=== PATIENT | female | born 1970 | race African-American/Black ===

== ENCOUNTER 2018-04-12 07:48 | Day surgery (SDC) | payer OTHER ==
[2018-04-06 14:10] VITALS: BMI 33.1
--- NOTE | 2018-04-12 07:17 | HP ---
History & Physical Update - History History: No Change - Physical Physical: No Change - Assessment Assessment: No Change - Plan Plan: No Change (H&P completed on 04/02/[address] Addison Griffin. No new medications or complaints. C/o LBP radiating to right hip-->leg. Here today for elective L4/5 laminectomy.)
[2018-04-12] MEDS ORDERED: oxyCODONE HCL 10 MG SUSTAINED ACTING TABLET PO STA (08:00)
[2018-04-12] MEDS ORDERED: methylPREDNISolone ACET (DEPO) 40 MG/1 ML VIAL ONE (10:32)
[2018-04-12] MEDS ORDERED: LIDOCAINE 1%/EPI 1:100000 (20 ML MULTI DOSE VIAL) ONE (10:32)
[2018-04-12] MEDS ORDERED: BUPIVACAINE HCL/PF 2.5 MG/ML - 30 ML VIAL IJ ONE (10:32)
[2018-04-12] MEDS ORDERED: THROMBIN (RECOMBINANT) 5,000 UNIT VIAL TP ONE (10:32)
[2018-04-12] MEDS ORDERED: BUPIVACAINE HCL/PF (5 MG/ML) 30 ML VIAL IJ ONE (10:57)
[2018-04-12] MEDS ORDERED: MIDAZOLAM HCL 2 MG/2 ML SINGLE DOSE VIAL ONE ×2 (10:57→11:41)
[2018-04-12] MEDS ORDERED: DEXMEDETOMIDINE HCL 200 MCG/2 ML ML IVPB ONE (10:58)
[2018-04-12] MEDS ORDERED: SUCCINYLCHOLINE CHLORIDE 200 MG/10 ML VIAL ONE (11:40)
[2018-04-12] MEDS ORDERED: LIDOCAINE 1%/EPI 1:100000 (20 ML MULTI DOSE VIAL) IJ ONE (11:47)
[2018-04-12] MEDS ORDERED: THROMBIN (BOVINE) 5,000 UNIT VIAL TP ONE (12:04)
[2018-04-12] MEDS ORDERED: GELATIN SPONGE,ABSORBABLE 1 GM PACKET TP ONE (12:06)
[2018-04-12] MEDS ORDERED: methylPREDNISolone ACET (DEPO) 40 MG/1 ML VIAL NR ONE ×2 (12:09→12:31)
[2018-04-12] MEDS ORDERED: ceFAZolin SODIUM 1 GM VIAL ONE (12:15)
[2018-04-12] MEDS ORDERED: DEXAMETHASONE SOD PHOSPHATE 4 MG/1 ML VIAL ONE (12:15)
[2018-04-12] MEDS ORDERED: ONDANSETRON 4 MG/2 ML VIAL ONE (12:15)
[2018-04-12] MEDS ORDERED: BUPIVACAINE HCL/PF 0.25% (2.5MG/ML) 10 ML VIAL IJ ONE (12:31)
[2018-04-12] MEDS ORDERED: ONDANSETRON 4 MG/2 ML VIAL IVPUSH PRN (13:12)
[2018-04-12] MEDS ORDERED: PROMETHAZINE HCL 25 MG/1 ML VIAL IVPUSH PRN (13:12)
--- NOTE | 2018-04-12 13:15 | OP ---
Operative Note - Note: Operative Date: 04/12/18 Pre-Operative Diagnosis: L4/5 spinal stenosis with radiculopathy Operation: L4/5 bilateral laminectomy Post-Operative Diagnosis: Same as Pre-op Surgeon: Ayush Norton Rn Call Center: Michele Pickett Anesthesiologist/ELECTRICIAN MARINE: Tre Suarez Anesthesia: Spinal Estimated Blood Loss (mls): 20 Fluid Volume Replaced (mls): 500 Operative Report Dictated: Yes
--- NOTE | 2018-04-12 13:16 | SURG ---
Surgery Decorative Engraver Note Decorative Engraver: Michele Pickett PA-C Date of Service: 04/12/18 Diagnosis: L4/5 spinal stenosis with radiculopathy Procedure: L4/5 bilateral laminectomy I was present for the entirety of the operative procedure. For further detail, please refer to operative report. Visit type - Case Type Case Type: Scheduled - New patient This patient is new to me today: Yes Date on this admission: 04/12/18
[2018-04-12 14:56] VITALS: TEMP 97.9
[2018-04-12] MEDS ORDERED: oxyCODONE HCL 5 MG TABLET PO PRN ×2 (15:56)
[2018-04-12 15:57] VITALS: PULSE 64
[2018-04-12 16:02] VITALS: BP 108/68
--- NOTE | 2018-04-12 22:04 | OP ---
DATE OF OPERATION: 04/12/2018 PREOPERATIVE DIAGNOSIS: Spinal stenosis at L4-5. POSTOPERATIVE DIAGNOSIS: Spinal stenosis at L4-5. PROCEDURE PERFORMED: Laminectomy, L4-5. SURGEON: Ayush Norton MD CRAFT ARTIST: YESICA Lugo ESTIMATED BLOOD LOSS: 50 mL INTRAVENOUS FLUIDS: Per Anesthesia. ANESTHESIA: Spinal/TLIP. COMPLICATIONS: None. DISPOSITION: Patient brought to the PACU to stable condition. INDICATION FOR SURGERY: The patient is a 47-year-old female who has been suffering from pain from her back down her right leg. X-rays and MRI were completed which noted that she had spinal stenosis at L4-5. She had gone through an exhaustive course of treatment for this, which included medications, physical therapy as well as injections. Unfortunately, her pain continued to persist despite all this. At this point, risks, benefits, and alternatives were discussed, and the patient consented to surgery. DESCRIPTION OF PROCEDURE: Patient was brought to the operating room by the anesthesia staff. After appropriate patient identification was performed, spinal anesthesia was given along with a TLIP block. Patient was able to position herself prone onto the Neel frame. All areas of bony prominences were well padded at this time. Two needles were placed into her back to julian off the L4-5 level. X-ray was taken to confirm this as correct. Vanzant were removed, and 10 mL of lidocaine with epinephrine were injected in her back at this time. Her back was prepped and draped in a sterile manner. At this point, a timeout was completed. An incision was made from the top of L4 down to the bottom of L5. Dissection was carried down to the fascia. Fascia was split open at this time, and appropriate retractors were then placed in. A spinal needle was placed onto the L4 lamina to julian off the L4-5 level. X-ray was taken to confirm this as correct. Needle was removed, and the interspinous ligament at L4-5 was removed. The microscope was brought in. Portions of the L4 and L5 spinous processes were removed. Portions of the L4 and L5 lamina were removed. The flavum was identified, was removed. A complete decompression was performed such that by the end of the procedure the L5 nerve root appeared to be well decompressed. All bleeding was well controlled at this time. Steroid was placed over the nerve root. FloSeal was placed over that. The fascia was closed with a No. 1 Vicryl suture. Subcutaneous tissues were closed with 2-0 Vicryl suture. Skin was closed with 3-0 Monocryl suture. Dermabond was applied. Steri-Strips were applied. A sterile dressing was applied. Patient was placed supine on the OR bed and brought to the PACU in stable condition. Elma LYONS/[id number]
== END 2018-04-12 16:00 | disposition home or self-care (01) ==
LOC: FASU 07:48
PROVIDERS: ATTEND Orthopaedic Surgery Orthopaedic Surgery of the Spine
PROC: 01NB0ZZ Release Lumbar Nerve, Open Approach (ICD-10-PCS; principal; 2018-04-12 10:00)
DX: M48.061 Spinal stenosis, lumbar region without neurogenic claudication (principal)
CPT/HCPCS: 72100-TC-FY; 94760